=== PATIENT | female | born 2000 | race Caucasian/White ===

== ENCOUNTER 2021-04-07 15:51 | Emergency (ER) | payer BC ==
[2021-04-07 17:55] LABS: Urine Blood 3+ (Negative); Urine Glucose Negative (Negative); Urine Protein Negative (Negative); Urine Specific Gravity >=1.030 (1.005-1.030)
[2021-04-07] MEDS ORDERED: NA CHLORIDE 0.9% 1,000 ML ONE (18:24)
[2021-04-07 18:36] LABS: Absolute Lymphocytes (CBC) 1.8 K/uL (0.7-4.9); Basophils % 0.7 % (0-1.3); Hematocrit 41.1 % (36.0-45.0); Lymphocytes % 18.2 % (15.3-44.8); MPV 8.2 fL (7.6-11.3); RBC Red Blood Cell Count 4.57 M/uL (3.86-4.86)
[2021-04-07 18:39] LABS: ALT/SGPT 19 U/L (12-78); AST/SGOT 18 U/L (15-37); Albumin 4.5 g/dL (3.4-5.0); Alkaline Phosphatase 60 U/L (45-117); BUN Blood Urea Nitrogen 9 mg/dL (7-18); Bicarbonate 22 mmol/L (21-32); Bilirubin Direct 0.1 mg/dL (0-0.2); Bilirubin Total 0.4 mg/dL (0.2-1.0); Glucose Level 91 mg/dL (74-106); Potassium 3.9 mmol/L (3.5-5.1); Protein, Total 8.2 g/dL (6.4-8.2); Sodium Level 139 mmol/L (136-145)
[2021-04-07 18:41] LABS: Protime INR 1.14
[2021-04-07 18:41] LABS: Barbiturates NEGATIVE (NEGATIVE); Benzodiazepines NEGATIVE (NEGATIVE); Cocaine NEGATIVE (NEGATIVE); METHAMPHETAM NEGATIVE (NEGATIVE); Methadone NEGATIVE (NEGATIVE); Opiates NEGATIVE (NEGATIVE); Phencyclidine NEGATIVE (NEGATIVE); THC Cannibis NEGATIVE (NEGATIVE)
--- NOTE | 2021-04-07 18:43 | ER ---
Nurse's Notes [facility] Name: Erika Serrano Age: 21 yrs Sex: Female : 2000 Arrival Date: 04/07/2021 Time: 15:58 Bed 15 Private MD: Diagnosis: Adjustment disorder with depressed mood;Suicidal ideations;Bipolar disorder, current episode depressed, moderate Presentation: 04/07 17:18 Chief complaint: Patient states: SI with a plan, "I was going to take a bunch of my [facility] medications but I looked it up and it said that it would just cause damage and didn't say it would kill me so I didn't take it." Reports calling [facility] and they recommended in-patient and told me to come here. Coronavirus screen: At this time, the client does not indicate any symptoms associated with coronavirus-19. Ebola Screen: No symptoms or risks identified at this time. Initial Sepsis Screen: Does the patient meet any 2 criteria? No. Patient's initial sepsis screen is negative. Does the patient have a suspected source of infection? No. Patient's initial sepsis screen is negative. Risk Assessment: Do you want to hurt yourself or someone else? Patient reports no desire to harm self or others. Onset of symptoms was April 07, 2021. Care prior to arrival: None. 17:18 Method Of Arrival: Ambulatory [facility] 17:18 Acuity: CHRISTOPHER 2 7 20:17 Note Pt resting quietly in bed. Dinner brought in by Uncle. Uncle at bedside. Pt denies df1 any requests at this time. 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 22:24 Note Report given to RN at [facility]. Awaiting bed assignment. df1 23:11 Note Pt resting quietly. Transportation being arranged. Pt has no further requests. df1 04/08 02:30 Note Report given to [facility]. Pt calm and cooperative. Pt walking out with EMT. df1 Triage Assessment: 04/07 17:21 General: Appears in no apparent distress. uncomfortable, Behavior is calm, cooperative, jl7 appropriate for age. Pain: Denies pain. 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 - Social history:: Smoking status: Patient denies any tobacco usage or history of. Patient/guardian denies using alcohol, street drugs. Screenin:16 Abuse screen: Denies threats or abuse. Denies injuries from another. Nutritional es2 screening: No deficits noted. Tuberculosis screening: No symptoms or risk factors identified. Fall Risk None identified. Ambulatory Aid- None/Bed Rest/Nurse Assist (0 pts). Gait- Normal/Bed Rest/Wheelchair (0 pts) Mental Status- Oriented to own ability (0 pts). Assessment: 18:09 General: Appears well developed, well nourished, Behavior is calm, cooperative, es2 appropriate for age. Pain: Denies pain. Neuro: Level of Consciousness is awake, alert, obeys commands, Gait is steady, Speech is normal. Cardiovascular: Capillary refill < 3 seconds Patient's skin is warm and dry. Respiratory: Airway is patent Respiratory effort is even, Respiratory pattern is regular. GI: No signs and/or symptoms were reported involving the gastrointestinal system. : No signs and/or symptoms were reported regarding the genitourinary system. EENT: No signs and/or symptoms were reported regarding the EENT system. Derm: No signs and/or symptoms reported regarding the dermatologic system. Musculoskeletal: No signs and/or symptoms reported regarding the musculoskeletal system. Psych: 18:37 [place] Suicide Severity Screening: In the past month, have you wished you were es2 or wished you could go to sleep and not wake up? Patient responds "yes." "In the past month, have you actually had any thoughts of killing yourself?" Patient responds "yes." "In your lifetime, have you ever done anything, started to do anything, or prepared to do anything to end your life?" Patient responds "no.". Subjective: Patient's mood is Delusions are Having thoughts of suicide. Plan for suicide is take pills. Objective: Patient is cooperative, Speech is rambling, Affect is appropriate. Interventions: Removed personal items and placed in bag. Patient placed in hospital gown. Searched person for dangerous items. Urine collected and sent for urine drug test. Belonging list filled out. Safety Checks: Personal items have been removed. Door is open. Visitors are present. Pt denies substance abuse. Commitment: Patient will be a voluntary commitment. 21:30 [place] Suicide Severity Screening:. df1 21:30 [place] Suicide Severity Screening: In the past month, have you wished you were df1 or wished you could go to sleep and not wake up? Patient responds "yes." "In the past month, have you actually had any thoughts of killing yourself?" Patient responds "yes." "In your lifetime, have you ever done anything, started to do anything, or prepared to do anything to end your life?" Patient responds "no.". Subjective: Delusions are Having thoughts of suicide. Plan for suicide is to overdose on pills. Objective: Patient is cooperative, Speech is normal, Affect is appropriate, Patient has mutilated themselves by no physical harm to delf. Interventions: Removed personal items and placed in bag. Patient placed in hospital gown. Searched person for dangerous items. Urine collected and sent for urine drug test. Belonging list filled out. Safety Checks: Personal items have been removed. Pt has been placed in a hallway bed/chair. Door is open. Pt denies substance abuse. Consultation: Pt waiting for transfer. Vital Signs: 17:18 BP 125 / 81; Pulse 89; Resp 17; Temp 99.2; Pulse Ox 100% ; Weight 68.04 kg; Height 4 jl7 ft. 11 in. (149.86 cm); Pain 0/10; 20:15 BP 122 / 78; Pulse 82; Resp 18; Pulse Ox 99% ; Pain 0/10; df1 17:18 Body Mass Index 30.30 (68.04 kg, 149.86 cm) jl7 ED Course: 15:58 Patient arrived in ED. as 17:21 Triage completed. jl7 17:21 Arm band placed on right wrist. jl7 17:26 Kenia Quintero, RN is Primary Nurse. es2 17:35 Fuentes Lin MD is Attending Physician. lana 17:59 Liver (Hepatic) Function Sent. es2 17:59 Urine --Ancillary (enter results) Sent. es2 17:59 Basic Metabolic Panel Sent. es2 17:59 Acetaminophen Sent. es2 17:59 Basic Metabolic Panel Sent. es2 17:59 Hepatic Function Sent. es2 17:59 CBC with Diff Sent. es2 17:59 ETOH Level Sent. es2 17:59 PT-INR Sent. es2 17:59 Urine Drug Screen Sent. es2 17:59 Salicylate Sent. es2 17:59 Ptt, Activated Sent. es2 18:22 Inserted saline lock: 20 gauge in right antecubital area, using aseptic technique. al 18:43 Patient has correct armband on for positive identification. Placed in gown. Bed in low es2 position. Call light in reach. 18:43 No provider procedures requiring assistance completed. es2 10 02:33 IV discontinued, intact. df1 Administered Medications: 04/07 18:03 Drug: NS 0.9% 1000 ml Route: IV; Rate: 1 bolus; Site: right antecubital; ap3 20:16 Follow up: IV Status: Completed infusion; IV Intake: 1000ml df1 Intake: 20:16 IV: 1000ml; Total: 1000ml. df1 Outcome: 18:43 ER care complete, transfer ordered by . [facility] 04/08 02:32 Transferred by ground EMS to other acute care facility: [facility]. df1 Condition: stable Instructed on the need for transfer. 02:48 Patient left the ED. df1 Signatures: Fuentes Lin MD MD cha Martinez, Amelia as Leal, Jahala RN RN [email or web address] [facility] Katelyn Dimas RN RN ap3 Isa Mcmahon df1 Kenia Quintero, RN RN es2 Corrections: (The following items were deleted from the chart) 04/07 17:24 17:21 Home Meds: Lexapro Oral; madelin beltre7 17:21 Home Meds: None; jl7 jl7 17:21 Home Meds: suppose to take Lexapro and Abilify but does not because "They don't jl work."; jl7 17:21 PMHx: depression; jl7 jl7 20:25 20:15 CORONAVIRUS+MR.LAB.BRZ drawn and sent. df1 EDMS
--- NOTE | 2021-04-07 18:43 | EDPHYS ---
Physician Documentation [facility] Name: Erika Serrano Age: 21 yrs Sex: Female : 2000 Arrival Date: 04/07/2021 Time: 15:58 Bed 15 Private MD: ED Physician Fuentes Lin HPI: 04/07 18:38 This 21 yrs old Female presents to ER via Ambulatory with complaints of lana Suicidal Ideation. 18:38 The patient presents to the emergency department with depression, suicide ideation, and lana the patient has a plan, to overdose with medications. Onset: The symptoms/episode began/occurred 2 day(s) ago. Past psychiatric history: Prior diagnosis: bipolar disorder, depression, Psychiatric medications include: none. Associated signs and symptoms: The patient has no apparent associated signs or symptoms. Severity of symptoms: At their worst the symptoms were mild in the emergency department the symptoms are unchanged. The patient has experienced similar episodes in the past, several times. 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 - Social history:: Smoking status: Patient denies any tobacco usage or history of. Patient/guardian denies using alcohol, street drugs. ROS: 18:39 Constitutional: Negative for fever, chills, and weight loss, Eyes: Negative for injury, lana pain, redness, and discharge, ENT: Negative for injury, pain, and discharge, Neck: Negative for injury, pain, and swelling, Cardiovascular: Negative for chest pain, palpitations, and edema, Respiratory: Negative for shortness of breath, cough, wheezing, and pleuritic chest pain, Abdomen/GI: Negative for abdominal pain, nausea, vomiting, diarrhea, and constipation, Back: Negative for injury and pain, : Negative for injury, bleeding, discharge, and swelling, MS/Extremity: Negative for injury and deformity, Skin: Negative for injury, rash, and discoloration, Neuro: Negative for headache, weakness, numbness, tingling, and seizure, Allergy/Immunology: Negative for hives, rash, and allergies, Endocrine: Negative for neck swelling, polydipsia, polyuria, polyphagia, and marked weight changes, Hematologic/Lymphatic: Negative for swollen nodes, abnormal bleeding, and unusual bruising. 18:39 Psych: Positive for anxiety, depression, suicidal ideation. Exam: 18:39 Constitutional: This is a well developed, well nourished patient who is awake, alert, lana and in no acute distress. Head/Face: Normocephalic, atraumatic. Eyes: Pupils equal round and reactive to light, extra-ocular motions intact. Lids and lashes normal. Conjunctiva and sclera are non-icteric and not injected. Cornea within normal limits. Periorbital areas with no swelling, redness, or edema. ENT: Nares patent. No nasal discharge, no septal abnormalities noted. Tympanic membranes are normal and external auditory canals are clear. Oropharynx with no redness, swelling, or masses, exudates, or evidence of obstruction, uvula midline. Mucous membranes moist. Neck: Trachea midline, no thyromegaly or masses palpated, and no cervical lymphadenopathy. Supple, full range of motion without nuchal rigidity, or vertebral point tenderness. No Meningismus. Chest/axilla: Normal chest wall appearance and motion. Nontender with no deformity. No lesions are appreciated. Cardiovascular: Regular rate and rhythm with a normal S1 and S2. No gallops, murmurs, or rubs. Normal PMI, no JVD. No pulse deficits. Respiratory: Lungs have equal breath sounds bilaterally, clear to auscultation and percussion. No rales, rhonchi or wheezes noted. No increased work of breathing, no retractions or nasal flaring. Abdomen/GI: Soft, non-tender, with normal bowel sounds. No distension or tympany. No guarding or rebound. No evidence of tenderness throughout. Back: No spinal tenderness. No costovertebral tenderness. Full range of motion. Skin: Warm, dry with normal turgor. Normal color with no rashes, no lesions, and no evidence of cellulitis. MS/ Extremity: Pulses equal, no cyanosis. Neurovascular intact. Full, normal range of motion. Neuro: Awake and alert, GCS 15, oriented to person, place, time, and situation. Cranial nerves II-XII grossly intact. Motor strength 5/5 in all extremities. Sensory grossly intact. Cerebellar exam normal. Normal gait. 18:39 Psych: Behavior/mood is pleasant, cooperative, Affect is calm, Oriented to person, place, time, Patient having thoughts of suicide. Judgement / Insight is normal. Memory is normal. Delusions/hallucinations are not present. 19:19 ECG was reviewed by the Attending Physician. [facility] Vital Signs: 17:18 BP 125 / 81; Pulse 89; Resp 17; Temp 99.2; Pulse Ox 100% ; Weight 68.04 kg; Height 4 jl7 ft. 11 in. (149.86 cm); Pain 0/10; 20:15 BP 122 / 78; Pulse 82; Resp 18; Pulse Ox 99% ; Pain 0/10; df1 17:18 Body Mass Index 30.30 (68.04 kg, 149.86 cm) jl7 MDM: 17:35 Patient medically screened. [facility] 18:40 Differential diagnosis: acute psychotic break, depression. Data reviewed: vital signs, [facility] nurses notes, lab test result(s), EKG. Data interpreted: telemetry monitor: rate is 89 beats/min, rhythm is regular, Pulse oximetry: on room air is 100 %. Test interpretation: by ED physician or midlevel provider: ECG. Counseling: I had a detailed discussion with the patient and/or guardian regarding: the historical points, exam findings, and any diagnostic results supporting the discharge/admit diagnosis, lab results, the need to transfer to another facility, for higher level of care, [facility] does not immediately have the required specialist. 22:52 ED course: Dr. Mckeon consulted at [facility]. Accepted patient for further [facility] psychiatric evaluation . 04/07 17:36 Order name: Acetaminophen [facility] 04/07 17:36 Order name: Basic Metabolic Panel [facility] 04/07 17:36 Order name: CBC with Diff; Complete Time: 19:18 [facility] 04/07 17:36 Order name: ETOH Level; Complete Time: 19:18 [facility] 04/07 17:36 Order name: Hepatic Function [facility] 04/07 17:36 Order name: PT-INR; Complete Time: 19:18 [facility] 04/07 17:36 Order name: Ptt, Activated; Complete Time: 19:18 [facility] 04/07 17:36 Order name: Salicylate; Complete Time: 19:18 [facility] 04/07 17:36 Order name: Urine Drug Screen; Complete Time: 19:18 [facility] 04/07 17:37 Order name: Acetaminophen Level; Complete Time: 19:18 EDMS 04/07 17:37 Order name: Basic Metabolic Panel; Complete Time: 19:18 EDTN 04/07 17:37 Order name: Liver (Hepatic) Function; Complete Time: 19:18 EDTN 04/07 17:55 Order name: Urine Dipstick-Ancillary; Complete Time: 19:18 EDMS 04/07 17:55 Order name: Urine --Ancillary (enter results); Complete Time: 22:31 04/07 17:36 Order name: EKG; Complete Time: 17:37 [facility] 04/07 17:36 Order name: EKG - Nurse/Tech; Complete Time: 18:03 [facility] 04/07 17:36 Order name: IV Saline Lock; Complete Time: 17:59 [facility] 04/07 17:36 Order name: Labs collected and sent; Complete Time: 17:59 [facility] 04/07 17:36 Order name: Suicide Precautions; Complete Time: 17:59 [facility] 04/07 17:36 Order name: Suicide Screening ([place]); Complete Time: 17:59 [facility] 04/07 17:36 Order name: Urine Dipstick-Ancillary (obtain specimen); Complete Time: 17:59 [facility] 04/07 20:25 Order name: SARS-COV-2 RT PCR; Complete Time: 22:31 EDMS EC:19 Rate is 94 beats/min. Rhythm is regular. QRS [place] is Normal. [place] interval is normal. QRS lana interval is normal. QT interval is normal. No Q waves. T waves are Normal. No ST changes noted. Clinical impression: Normal ECG and No evidence of ischemia. Interpreted by me. Reviewed by me. Administered Medications: 18:03 Drug: NS 0.9% 1000 ml Route: IV; Rate: 1 bolus; Site: right antecubital; ap3 20:16 Follow up: IV Status: Completed infusion; IV Intake: 1000ml df1 Disposition: 04/08 07:55 Co-signature as Attending Physician, Fuentes Lin MD I agree with the assessment and [facility] plan of care. Disposition Summary: 04/07/21 18:43 Transfer Ordered Transfer Location: Psych Facility lana Reason: Higher level of care lana Condition: Stable lana Problem: chronic lana Symptoms: have worsened lana Accepting Physician: Dr. Mckeon(04/08/21 02:48) df1 Diagnosis - Adjustment disorder with depressed mood lana - Suicidal ideations lana - Bipolar disorder, current episode depressed, moderate lana Forms: - Medication Reconciliation Form lana - SBAR form lana Signatures: Dispatcher [employer] EDTN Fuentes Lin MD MD cha Roszak, Josh, PA PA jr8 Ramírez Loo RN RN jl7 Katelyn Dimas RN RN ap3 Isa Mcmahon df1 Corrections: (The following items were deleted from the chart) 04/07 17:24 17:21 Home Meds: Lexapro Oral; jl7 jl7 17:24 17:21 Home Meds: None; jl7 jl7 17: 17:21 Home Meds: suppose to take Lexapro and Abilify but does not because "They don't jl7 work."; jl7 17:24 17:21 PMHx: depression; jl7 jl7 20:25 18:03 CORONAVIRUS+MR.LAB.BRZ ordered. EDTN EDMS 22:53 18:43 to psych lana jr8 04/08 02:48 04/07 22:53 Dr. Mckeon jr8 df1
[2021-04-07 21:14] LABS: Urine Specific Gravity/Preg >1.030 (1.005-1.030)
[2021-04-08 03:08] VITALS: TEMP 99.2
[2021-04-08 03:10] VITALS: BP 122/78; O2SAT 99
== END 2021-04-08 02:48 ==
LOC: ER 15:51
DX: F43.21 Adjustment disorder with depressed mood (principal); F31.32 Bipolar disorder, current episode depressed, moderate; Z20.822 Contact with and (suspected) exposure to COVID-19
CPT/HCPCS: 96361; 93005; 85025; 80048; 36415; 80320; 80329 ×2; 81025; 85610; 80076; 85730; 81003; 80307; 96360; 99285; U0003; J7030